=== PATIENT | female | born 1975 | race Caucasian/White ===

== ENCOUNTER 2019-02-14 09:45 | Outpatient (CLI) | payer OTHER | END 2019-02-14 23:59 | disposition home or self-care (01) | LOC: RAD 09:45 → MERGE 10:00 → RAD 23:59 | PROVIDERS: ATTEND Physician Assistant | DX: M19.011 Primary osteoarthritis, right shoulder (principal) ==

== ENCOUNTER → 2020-03-24 | Outpatient (CLI) | payer OTHER | END | disposition home or self-care (01) | LOC: CFH 12:01 | PROVIDERS: ATTEND Obstetrics & Gynecology | DX: Z12.31 Encounter for screening mammogram for malignant neoplasm of breast (principal) | CPT/HCPCS: 77063; 77067 ==